=== PATIENT | female | born 1960 | race African-American/Black ===

== ENCOUNTER 2016-12-30 12:34 | Emergency (ER) | payer BC ==
[~2016-12-30] VITALS: Ht 152.4 cm; Wt 64.4 kg
[~2016-12-30 12:34] MED LIST: BENAZEPRIL HCL/1 TAB PO; ECO81 PO; HYDROCHLOROTH12.5 M2 PO; LOTENSIN10 MG; TORADOL10 MG PO
[2016-12-30 14:56] LABS: BASOPHIL % 0.5 % (0-2); PLATELET COUNT 170 x10^3mcL (130-400); RED CELL DISTRIBUTION WIDTH 12.9 % (11.5-14.5)
[2016-12-30 15:02] VITALS: BP 151/62
[2016-12-30 15:06] LABS: CALCIUM 9.1 mg/dL (8.5-10.1); CARBON DIOXIDE 29.9 mmol/L (21-32); CHLORIDE SERUM 104 mmol/L (98-107); GFR1 > 60 mL/min; GLUCOSE SERUM 111 mg/dL (74-106); POTASSIUM SERUM 3.5 mmol/L (3.5-5.1); SODIUM SERUM 140 mmol/L (136-145)
[2016-12-30 15:11] LABS: ALBUMIN 3.5 g/dL (3.4-5.0); ALKALINE PHOSPHATASE 62 U/L (46-116); ALT/SGPT 17 U/L (14-59); AST/SGOT 19 U/L (15-37); BILIRUBIN TOTAL 0.49 mg/dL (0.20-1.00); LIPASE 181 IU/L (73-393); TOTAL PROTEIN, SERUM 7.7 g/dL (6.4-8.2)
[2016-12-30 15:25] LABS: microscopic required? YES; urine erythrocyte 3+ (NEGATIVE)
== END 2016-12-30 17:36 | disposition home or self-care (01) ==
LOC: ED 12:34
PROVIDERS: Emergency Medicine
DX: N39.0 Urinary tract infection, site not specified (principal); I10 Essential (primary) hypertension; Z88.0 Allergy status to penicillin; Z88.2 Allergy status to sulfonamides
CPT/HCPCS: 83880; J0696; J2270; J2405; J7030